=== PATIENT | female | born 1975 | race African-American/Black ===

== ENCOUNTER 2016-11-25 12:42 | Emergency (ER) | payer MEDICAID, OTHER ==
[~2016-11-25] VITALS: Ht 165.1 cm; Wt 130.0 kg
[2016-11-25] MEDS ORDERED: NAPROXEN 375MG TABLET PO ONE (13:45)
[2016-11-25] MEDS ORDERED: TETRACAINE 0.5% OPHTH DROPS 4ML LEFTEYE ONE (13:45)
[2016-11-25] MEDS ORDERED: FLUORESCEIN SODIUM 1MG/STRIP BOTHEYE ONE (13:45)
[2016-11-25] MEDS ORDERED: HYDROCODONE/APAP 7.5/325MG 1 TAB TABLET PO ONE (13:45)
[2016-11-25 16:00] VITALS: BP 134/75
== END 2016-11-25 16:01 | disposition home or self-care (01) ==
LOC: ER 13:50
DX: G44.209 Tension-type headache, unspecified, not intractable (principal); I10 Essential (primary) hypertension; Z98.890 Other specified postprocedural states
CPT/HCPCS: 93005; 99284; Z7610